=== PATIENT | male | born 1970 | race Caucasian/White ===

== ENCOUNTER 2019-08-29 12:02 | Emergency (ER) | payer BC ==
--- NOTE | 2019-08-29 14:34 | EDM.PDOC ---
ED HPI GENERAL MEDICAL PROBLEM - General Chief Complaint: ENT Problem Stated Complaint: EAR INFECTION Time Seen by Provider: 08/29/19 13:25 - History of Present Illness INITIAL COMMENTS - FREE TEXT/NARRATIVE: History of present illness: 48-year-old male presenting with left-sided ear pain and drainage. He does report that about a week ago he had some right-sided ear drainage but that has since resolved. Now he has pain in the ear canal and some drainage as well. He does report that he swam in a [place] on August 14 weekend but symptoms just started in the last few days. Has not had any fevers or chills. He does report inter mittent thrush after having been on an immunomodulator for his psoriasis. No sore throat or fevers. Review of systems: As per history of present illness and below otherwise all systems reviewed and negative. Past medical history: As per history of present illness and as reviewed below otherwise noncontributory. Psoriasis Surgical history: As per history of present illness and as reviewed below otherwise noncontributory. Social history: No reported history of drug or alcohol abuse. No tobacco Family history: As per history of present illness and as reviewed below otherwise noncontr ibutory. Physical exam: GEN: no acute distress, well appearing HEENT: Atraumatic, normocephalic, mucous membranes moist, no signs of thrush. Right TM unremarkable. No erythema or bulging. No canal erythema, tenderness or narrowing. Left TM appears scarred, no erythema or bulging or any signs of acute infection. The left otic canal is erythematous and narrowed though not obstructed. No pain with motion of the left ear. Neck: supple, nontender, trachea midline. No lymphadenopathy Lungs: No respiratory distress. Heart: RRR Neuro: Awake, alert, oriented. Neuro Exam nonfocal. Skin: warm, dry, no lesions Diagnostics: Therapeutics: MDM: Impression: Otitis externa Plan: Cortisporin sent electronically to the patient's pharmacy. Definitive disposition and diagnosis as appropriate pending reevaluation and review of above. Left Ear Pain Score (Numeric/FACES): 4 - Related Data Allergies Allergy/AdvReac Type Severity Reaction Status Date / Time No Known Allergies Allergy Verified 08/29/19 12:18 Home Meds: Home Meds Hydrocort/Neomycin/Polymyxin B [Ihrlnntu-Xvzirkurr-YQ Otic Susp] 4 drop EARLF Q6HR 10 Days #1 bottle 08/29/19 [Rx] lisinopriL [Lisinopril] 2.5 mg PO DAILY 08/29/19 [History] Past Medical History Cardiovascular History: Reports: Hypertension Dermatologic History: Reports: Psoriasis - Infectious Disease History Infectious Disease History: Reports: Chicken Pox Social & Family History - Family History Family Medical History: Noncontributory - Tobacco Use Smoking Status *Q: Never Smoker - Recreational Drug Use Recreational Drug Use: No ED ROS ENT - Review of Systems Review Of Systems: See Below (See HPI) ED EXAM, ENT - Physical Exam Exam: See Below (See HPI) Course - Vital Signs Text/Narrative:: Left ear otitis externa. Otic drops prescription sent to patient's pharmacy. No obvious otitis media. No signs of thrush at this time. Last Recorded V/S: Last Vital Signs Temp 97.5 F 08/29/19 12:26 Pulse 63 08/29/19 12:26 Resp 18 08/29/19 12:26 BP 134/80 08/29/19 12:26 Pulse Ox 100 08/29/19 12:26 Departure - Departure Time of Disposition: 14:32 Disposition: Home, Self-Care 01 Clinical Impression: Otitis externa Qualifiers: Chronicity: acute Laterality: left - Discharge Information Prescriptions: Hydrocort/Neomycin/Polymyxin B [Tfvoypqr-Nkfdtsajy-ZH Otic Susp] 4 drop EARLF Q6HR 10 Days #1 bottle Instructions: Ear Drops, Adult, [id number]-[id number], Otitis Externa, [id number] Referrals: PCP,Not In Area [Primary Care Provider] - Additional Instructions: Please use the otic drops in the left ear 4 times per day for the next 7 to 10 days. Return to the ER if you have any worsening symptoms, or if you feel that the ear canal has closed and you cannot get the drops in. The following information is given to patients seen in the emergency department who are being discharged to home. This information is to outline your options for follow-up care. We provide all patients seen in our emergency department with a follow-up referral. The need for follow-up, as well as the timing and circumstances, are variable depending upon the specifics of your emergency department visit. If you don't have a primary care physician on staff, we will provide you with a referral. We always advise you to contact your personal physician following an emergency department visit to inform them of the circumstance of the visit and for follow-up with them and/or the need for any referrals to a consulting specialist. The emergency department will also refer you to a specialist when appropriate. This referral assures that you have the opportunity for follow-up care with a specialist. All of these measure are taken in an effort to provide you with optimal care, which includes your follow-up. Under all circumstances we always encourage you to contact your private physician who remains a resource for coordinating your care. When calling for follow-up care, please make the office aware that this follow-up is from your recent emergency room visit. If for any reason you are refused follow-up, please contact the [facility] Emergency Department at and asked to speak to the emergency department charge nurse. [facility] [address] [place] [id number] [address] Sepsis Event Note (ED) - Evaluation Sepsis Screening Result: No Definite Risk - Focused Exam Vital Signs: Vital Signs Temp Pulse Resp BP Pulse Ox 08/29/19 12:26 97.5 F 63 18 134/80 100
== END 2019-08-29 14:52 | disposition home or self-care (01) ==
LOC: MW.ED 12:02
DX: H60.92 Unspecified otitis externa, left ear (principal); I10 Essential (primary) hypertension; Z79.899 Other long term (current) drug therapy
CPT/HCPCS: 99282; 99283